=== PATIENT | male | born 1990 | race Caucasian/White ===

== ENCOUNTER 2022-06-12 23:03 | Emergency (ER) | payer OTHER ==
[~2022-06-12] VITALS: Ht 182.9 cm; Wt 86.2 kg
[2022-06-12] MEDS ORDERED: PHENYTOIN SODIUM IV 1,000 MG in IV NS 0.9% 100 ML IV ONE (23:30)
[2022-06-12] MEDS ORDERED: phenytoin SODIUM IV 250 MG/5 ML VIAL IV ONE (23:36)
--- NOTE | 2022-06-13 | NUR ---
[id number] C/O REPORTED SHAKING "DESCRIBED SEIZURE LIKE" W/ HX PT NOT ON MEDS. PATIETN IS A/O X 4, RR EVEN AND UNKLABORED, NO SOB NOTED. PATIENT TAKEN TO ER BED 11. [employer] AT BEDSIDE. PATIENT CONNECTED TO MONITORS.
--- NOTE | 2022-06-13 00:04 | NUR ---
ADDENDUM: Intravenous End Time Documentation: Dilantin 1000 mg in 100 cc normal saline IV piggyback: start time: 3; end time: 42: IV site:LAC PIV # 20 Port #1
[2022-06-13 00:13] LABS: BASOPHILS % (AUTO) 0.2 % (0.0-2.0); EOSINOPHILS % (AUTO) 0.4 % (0.0-6.0); HEMATOCRIT 43 % (39-51); LYMPHOCYTES # (AUTO) 0.9 K/uL (0.8-4.8); LYMPHOCYTES % (AUTO) 10.2 % (20.0-44.0); MEAN CORPUSCULAR HGB CONC 33 g/dl (31.0-36.0); MEAN CORPUSCULAR VOLUME 88 fL (80-96); MONOCYTES # (AUTO) 0.5 K/uL (0.1-1.30); MONOCYTES % (AUTO) 5.8 % (2.0-12.0); NEUTROPHILS # (AUTO) 7.1 K/uL (1.8-8.9); NEUTROPHILS % (AUTO) 83.4 % (43.0-81.0); PLATELET COUNT (AUTO) 156 K/uL (150-450); RED BLOOD CELL COUNT(AUTO) 4.84 MIL/uL (4.5-6.0); WHITE BLOOD COUNT (AUTO) 8.5 K/uL (4.3-11.0)
--- NOTE | 2022-06-13 00:14 | NUR ---
TAKEN TO CT
[2022-06-13 00:26] LABS: CALCIUM, SERUM 8.8 mg/dL (8.5-10.1); CARBON DIOXIDE 25 mmol/L (21-32); CHLORIDE 103 mmol/L (98-107); CREATININE 0.8 mg/dL (0.6-1.3); GLUCOSE 105 mg/dL (74-106); POTASSIUM 3.7 mmol/L (3.5-5.1); SODIUM SERUM 136 mmol/L (136-145); UREA NITROGEN, BLOOD 12 mg/dL (7-18)
[2022-06-13 00:32] VITALS: BP 133/77
--- NOTE | 2022-06-13 00:32 | NUR ---
URINE COLLECTED SENT TO LAB
[2022-06-13 00:40] LABS: ALANINE AMINOTRANSFERASE 55 U/L (12-78); ALBUMIN 3.6 g/dL (3.4-5.0); ALKALINE PHOSPHATASE 219 U/L (46-116); ASPARTATE AMINOTRANSFERASE 34 U/L (15-37); BILIRUBIN,DIRECT 0.2 mg/dL (0.0-0.2); BILIRUBIN,TOTAL 0.6 mg/dL (0.2-1.0); TOTAL PROTEIN, SERUM 8.3 g/dL (6.4-8.2)
[2022-06-13 00:41] LABS: ALCOHOL, BLOOD < 3 mg/dL (0-0)
--- NOTE | 2022-06-13 00:44 | NUR ---
Patient does not wish to proceed with medical care recommended by Dr. Davenport. Patient given information related to possible complications, up to and including , which could occur as a result of leaving the hospital at this time. Patient verbalizes understanding of risks involved due to leaving against medical advice. Patient has signed AMA form.
== END 2022-06-13 01:00 | disposition left against medical advice (07) ==
LOC: ER 23:10
DX: G40.909 Epilepsy, unspecified, not intractable, without status epilepticus (principal); R94.31 Abnormal electrocardiogram [ECG] [EKG]; Z91.14 Patient's other noncompliance with medication regimen
CPT/HCPCS: 99285; 93005; 71045; 70450; 85025; 80048; 80076; 36415; 85730; 80320; 80307; 96365; 82962; J1165; J7030 ×2; G0480